=== PATIENT | female | born 1935 | race Hispanic/Latino ===

== ENCOUNTER 2018-04-01 15:46 | Inpatient (IN) | payer OTHER ==
[~2018-04-01] VITALS: Ht 152.4 cm; Wt 59.0 kg
[~2018-04-01 15:46] MED LIST: ASPIRIN81 M4 PO; BACTRIM DS TAB1 EACH PO; CEFUROXIME AXE500 MG PO; COREG 6.256.25 MG PO; DIOVAN 160 MG160 MG PO; JANUMET 50-5001 EACH PO; NORCO 5-325 TA1 EACH PO; PRAVASTATIN SOD40 M2 PO; TYLENOL WITH C1 EACH PO; VICODIN5-300 PO; ZOFRAN ODT4 M1 PO; ZOFRAN ODT4 M1 SL; ZOFRAN4 M1 PO
--- NOTE | 2018-04-01 15:59 | ED GENERAL ADULT ---
History of Present Illness General Chief Complaint: Nausea, Vomiting, Diarrhea Stated Complaint: BIBA NAUSEA Source: patient, family, old records Exam Limitations: no limitations Vital Signs & Intake/Output Vital Signs & Intake/Output Vital Signs Date Time Temp Pulse Resp B/P B/P Pulse O2 O2 Flow FiO2 Mean Ox Delivery Rate 04/02 0018 98.5 80 20 160/62 98 Room Air 04/01 2338 98.5 83 20 138/64 96 Room Air 04/01 2227 83 18 162/64 98 Room Air 04/01 2208 98.0 72 18 220/76 04/01 2136 72 18 220/76 96 Room Air 04/01 2005 93 18 192/86 97 Room Air 04/01 1925 98.0 74 18 202/68 04/01 1916 74 18 202/68 96 Room Air 04/01 1806 94 18 218/88 95 Room Air 04/01 1709 97 Room Air 04/01 1559 98.0 74 18 163/85 98 Room Air ED Intake and Output 04/02 0000 04/01 1200 Intake Total 1000 Output Total Balance 1000 Intake, IV 1000 Patient 130 lb Weight Weight Estimated Measurement Method Allergies Coded Allergies: No Known Allergies (03/07/16) Reconcile Medications Aspirin 81 MG CTB 1 TAB PO DAILY HEART (Reported) Carvedilol (Coreg) 6.25 MG TAB 1 TAB PO DAILY HTN (Reported) Cefuroxime Axetil (Cefuroxime) 500 MG TAB 1 TAB PO BID urine infection Hydrocodone/Acetaminophen ([place] 5-325 Tablet) 1 EACH TABLET 1 TAB PO Q6P PRN PAIN Metformin Hydrochloride/Zunilda (Janumet 500 MG-50 MG) 1 TAB TAB 1 TAB PO DAILY SUGAR (Reported) Ondansetron (Zofran Odt) 4 MG TAB.RAPDIS 1 TAB PO Q6 PRN NAUSEA Ondansetron (Zofran Odt) 4 MG TAB.RAPDIS 1 TAB SL TID PRN NAUSEA Pravastatin Sodium 40 MG TAB 1 TAB PO DAILY CHOL (Reported) Sulfamethoxazole/Trimethoprim (Bactrim Ds Tablet) 1 EACH TABLET 1 TAB PO BID UTI Tylenol With Codeine (Tylenol With Codeine #3 Tablet) 300 MG-30 MG TABLET 1 TAB PO Q8P PRN PAIN Valsartan (Diovan) 160 MG TAB 1 TAB PO DAILY HTN (Reported) Triage Nurses Notes Reviewed? yes HPI: This is an 83-year-old independent female with history of hypertension, hyperlipidemia, osu-[id number] diabetes, cholecystitis status post cholecystectomy presenting to the emergency department with abrupt onset nausea with epigastric discomfort associated with lightheadedness and feeling of malaise. She denies any chest pain or shortness of breath. She has no recent illness, injury, travel. No obvious sick contacts. Upon arrival to the emergency department she states that her symptoms are somewhat improved. She denies any ongoing abdominal discomfort. She does feel mildly nauseated. She denies any vertigo. She has a steady gait. (Fabrizio Tyler MD) Past History Travel History Traveled to [facility] past 21 day No Medical History Any Pertinent Medical History? 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 No (Fabrizio Tyler MD) Review of Systems Review of Systems Constitutional: Reports: malaise. Denies: chills, diaphoresis, fever, weakness. EENTM: Reports: no symptoms. Respiratory: Reports: no symptoms. Cardiovascular: Reports: no symptoms. GI: Reports: see HPI. Denies: vomiting. Musculoskeletal: Reports: no symptoms. Skin: Reports: no symptoms. Neurological/Psychological: Reports: see HPI. (Fabrizio Tyler MD) Physical Exam Physical Exam General Appearance: well developed/nourished, no apparent distress, awake, comfortable Comments: Well-appearing elderly female, no acute distress. HEENT exam within normal limits. Extraocular muscles intact, visual gomez normal, vision grossly intact , no vertical or horizontal nystagmus noted. Normal gait, negative Romberg. Normal sensation in all extremities. No gross motor deficits. Cranial nerves II through XII normal as tested. Cardio pulmonary exam significant for possible S3. Otherwise within normal limits. Abdomen benign, nondistended, nontender. No edema in bilateral lower extremities. Intact pulse movement sensation all extremities. Core Measures ACS in differential dx? Yes CVA/TIA Diagnosis: No Sepsis Present: No Sepsis Focused Exam Completed? No (Fabrizio Tyler MD) Progress Differential Diagnoses I considered the following diagnoses in my evaluation of the patient: Dehydration, pancreatitis, intra-abdominal infection, metabolic derangement, ACS (atypical),Occult infection/UTI/pneumonia, low suspicion for CVA given lack of focal neurologic deficit. Possibility of posterior circulation pathology is considered but seems low likelihood given lack of vertigo, ongoing dizziness, other suggestive physical exam or historical features. Doubt acute vascular pathology at this time. Plan of Care: Orders Procedure Date/time Status Heart Healthy Diet 04/02 B Active MRI-HEAD W/O LUCA 04/02 800 Active BASIC ELECTROLYTES PLUS BUN&CR 04/02 600 Active Weight 04/01 2334 Active Vital Signs 04/01 233 Active Teach/Educate 04/01 2334 Active Pain Treatment and Response 04/01 2334 Active Nutritional Intake, Monitor 04/01 2334 Active Isolation 04/01 2334 Active Intake & Output 04/01 233 Active Patient Care Conference 04/01 233 Active Activity/Ambulation 04/01 2334 Active Patient Data 04/01 215 Active Pathway - chart 04/01 2108 Active House Staff 04/01 2108 Active Patient Data 04/01 2108 Active Code Status 04/01 2108 Active Admit to inpatient 04/01 205 Active Vital Signs 04/01 205 Active Code Status 04/01 205 Complete CULTURE,URINE 04/01 1821 Active Intake & Output 04/01 1703 Active URINALYSIS 04/01 1634 Complete TROPONIN LEVEL 04/01 1634 Complete LIPASE 04/01 1634 Complete COMPREHENSIVE METABOLIC PANEL 04/01 1634 Complete CBC WITHOUT DIFFERENTIAL 04/01 1634 Complete EKG 04/01 1630 Active EKG 04/01 1555 Active PT Evaluate & Treat 04/01 UNK Active Lab Add-on Test 04/01 UNK Active VTE Mechanical Prophylaxis 04/01 UNK Active Telemetry/Genetic Scientist 04/01 UNK Active FingerStick- Glucose 04/01 UNK Active Current Medications Sig/Wander Start time Last Medication Dose Stop Time Status Admin Enoxaparin Sodium 40 MG DAILY 04/03 900 AC (Lovenox) Insulin Aspart 0 TIDAC 04/02 0800 AC 04/01 (NovoLOG) 2324 Acetaminophen 650 MG Q6P PRN 04/01 2115 AC (Tylenol) Laboratory Tests 04/01/18 1821: Urine Color ORANG H, Urine Clarity HAZY H, Urine pH 6.0, Ur Specific [place] 1.015, Urine Protein 100 H, Urine Ketones NEG, Urine Nitrite POS H, Urine Bilirubin NEG, Urine Urobilinogen 0.2, Ur Leukocyte Esterase SMALL H, Ur Microscopic SEDIMENT EXAMINED, Urine RBC >75 H, Urine WBC 15-25 H, Ur Epithelial Cells RARE, Urine Bacteria MANY H, Urine Hemoglobin LARGE H, Urine Glucose 250 H 04/01/18 1657: Anion Gap 7, Estimated GFR > 60, BUN/Creatinine Ratio 38.0 H, Glucose 276 H, Calcium 9.2, Total Bilirubin 0.3, AST 19, ALT 21, Alkaline Phosphatase 126, Troponin I < 0.01, Total Protein 7.1, Albumin 3.7, Globulin 3.4, Albumin/ Globulin Ratio 1.1, Lipase 74, CBC w Diff NO MAN DIFF REQ, RBC 4.16 L, MCV 86.3 , MCH 29.6, MCHC 34.3, RDW 12.6, MPV 11.1 H, Gran % 71.1, Lymphocytes % 21.3, Monocytes % 6.2, Eosinophils % 0.9, Basophils % 0.5, Absolute Granulocytes 5.2, Absolute Lymphocytes 1.6, Absolute Monocytes 0.5, Absolute Eosinophils 0.1, Absolute Basophils 0 Microbiology 04/01 1821 URINE ROUT: Urine Culture - RECD Plan for troponin 2, EKG, chest x-ray, CT head, abdominal CT, IV fluids, Zofran , reassessment. Diagnostics are significant for a apparent UTI. Case discussed with Dr. Dukes, he agrees with plan for inpatient admission given patient is manifesting systemic symptoms. Additionally, the patient has an equivocal CT read which shows a hyperdensity to the left darrius, most likely related to calcification. However given there is no prior for comparison, acute hemorrhage cannot be excluded. Patient will undergo repeat CT in 12 hours versus inpatient MRI. Dr. Dukes aware. Dr. Vallecillo of neurology is consulted and agrees with plan. Apart from requiring blood pressure control with labetalol, remains hematologically and neurologically stable in the emergency department. No leukocytosis noted on labs. Initial ED EKG: normal axis, normal intervals, lateral TWI; similar to prior but moderately worsened; stable on q30min repeat (Jayson RAI,Fabrizio) Departure Departure Time of Disposition: 2113 Disposition: STILL A PATIENT Condition: Stable Clinical Impression Primary Impression: UTI (urinary tract infection) Secondary Impressions: Epigastric abdominal pain, Lightheadedness, Nausea alone Referrals: Don Dukes MD (PCP/Family) Departure Forms: Customer Survey General Discharge Information Admission Note Spoke With: Don Dukes MD Documentation of Exam: Documentation of any treatments & extenuating circumstances including Concerns Regarding Discharge (functional status, medication knowledge or non-compliance, living conditions, etc.) that warrant an admission rather than observation: IV antibiotics, repeat head CT versus MRI, repeat labs, reassessment. (Fabrizio Tyler MD) PA/PRESS OPERATOR HEAVY DUTY Co-Sign Statement Statement: ED Attending supervision documentation- X I saw and evaluated the patient. I have also reviewed all the pertinent lab results and diagnostic results. I agree with the findings and the plan of care as documented in the PA's/PRESS OPERATOR HEAVY DUTY's documentation. [] I have reviewed the ED Record and agree with the PA's/PRESS OPERATOR HEAVY DUTY's documentation. [] Additions or exceptions (if any) to the PAs/PRESS OPERATOR HEAVY DUTY's note and plan are summarized below: [] (Trino RAI,Erik) Critical Care Note Critical Care Note Critical Care Time: non-applicable (Fabrizio Tyler MD)
[2018-04-01 17:14] LABS: ABSOLUTE BASOPHIL COUNT 0 /CUMM (0.0-0.2); ABSOLUTE EOSINOPHIL COUNT 0.1 /CUMM (0.0-0.7); ABSOLUTE GRANULOCYTE CT 5.2 /CUMM (1.4-6.5); ABSOLUTE LYMPH COUNT 1.6 /CUMM (1.2-3.4); ABSOLUTE MONOCYTE COUNT 0.5 /CUMM (0.10-0.60); BASOPHIL % 0.5 % (0.0-2.0); EOSINOPHIL % 0.9 % (0-5); GRANULOCYTE % 71.1 % (42.2-75.2); HEMATOCRIT 35.9 % (37-47); MEAN CORPUSCULAR HGB 29.6 PG (27.0-31.0); MEAN CORPUSCULAR HGB CONC 34.3 G/DL (33.0-37.0); MEAN CORPUSCULAR VOLUME 86.3 FL (81.0-99.0); MEAN PLATELET VOLUME 11.1 FL (7.4-10.4); PLATELET COUNT 236 /CUMM (130-400); RBC DISTRIBUTION WIDTH 12.6 % (11.5-14.5); RED BLOOD CELL CT 4.16 /CUMM (4.20-5.40); WHITE BLOOD CELL COUNT 7.4 /CUMM (4.8-10.8)
--- NOTE | 2018-04-01 17:48 | RADIOLOGY REPORT ---
EXAMINATION: XR CHEST CLINICAL INFORMATION: Lightheadedness. Concern for pneumonia. COMPARISON: 03/24/2011 TECHNIQUE: 2 views of the chest were obtained. FINDINGS: Lungs are symmetrically expanded. Linear opacities of minimal atelectasis and/or scarring in the left lung base. No pulmonary edema, consolidation or pleural effusion. Cardiac silhouette is normal in size. Mitral valve annulus is calcified. Atherosclerotic calcification of the aorta. The hilar contours are normal. Bones appear diffusely osteoporotic. No acute findings within the degenerated spine. IMPRESSION: No evidence of pneumonia.
--- NOTE | 2018-04-01 18:43 | CT SCAN REPORT ---
EXAMINATION: CT HEAD WITHOUT CONTRAST CLINICAL INFORMATION: Dizziness and vomiting. COMPARISON: None TECHNIQUE: Contiguous axial imaging was performed from the skull base to vertex without intravenous administration of contrast. DLP: 548 mGy-cm FINDINGS: Brain parenchyma: Mild patchy hypoattenuation within periventricular white matter, likely sequela of chronic small vessel ischemic change. Mild atrophy of cerebral hemispheres. Nickerson-white matter differentiation is well preserved. No evidence of an acute major vascular territory infarction, mass or midline shift. There is atherosclerotic calcification of vertebral and cavernous carotid arteries. Small, 0.3 cm hyperdense focus within the left darrius probably represents calcification rather than acute hemorrhage. No surrounding edema. Cerebrospinal fluid spaces: The mild atrophy of cerebral hemispheres is associated with commensurate prominence of ventricles and sulci. No hydrocephalus or extra-axial fluid collections. Cerebellum and brainstem: The 4th ventricle is midline in position. The cerebellopontine angles are normal. Again, there is a 0.3 cm focus of high attenuation left darrius that probably represents a focus of chronic calcification. However, follow-up may be needed (given absence of comparison exams, and depending on patient's clinical course). Calvarium and temporomandibular joints: Calvarium is intact. Mastoid air cells and middle ear cavities are well aerated. The TMJs are normal. Paranasal sinuses and orbits: There appears to be mucus within one of the left ethmoid air cells. Otherwise, paranasal sinuses are unremarkable. The visualized orbits are unremarkable. Other: No acute findings in the visualized extracranial soft tissues. IMPRESSION: - Chronic, mild small vessel ischemic changes of the supratentorial white matter. - Mild cerebral atrophy. - Small, 0.3 cm hyperdense focus in the left darrius probably represents an old calcification rather than acute hemorrhage. No surrounding edema or mass effect. If there are no contraindications, MR imaging would be recommended for further evaluation. Alternatively, a follow-up noncontrast head CT could be acquired in the next 12-24 hours, or sooner, depending upon the clinical course. Findings/recommendations discussed with Fabrizio Tyler of the Emergency Room at 6:35 PM on 04/01/2018.
--- NOTE | 2018-04-01 18:43 | CT SCAN REPORT ---
EXAMINATION: CT ABDOMEN AND PELVIS WITH CONTRAST CLINICAL INFORMATION: Abdominal pain, vomiting, lightheadedness. Presumptive diagnosis of intra-abdominal infection. COMPARISON: CT scan of the abdomen and pelvis dated 03/11/[address] scans dating back to 05/06/2012. TECHNIQUE: Multidetector CT volumetric acquisition of the abdomen and pelvis was performed after the administration of 95 mL of intravenous Optiray 320. The data set was reformatted in the sagittal and coronal planes and reviewed on an independent workstation. DLP: 342.95 mGy-cm. FINDINGS: LOWER CHEST: Patchy groundglass and reticular opacities is seen in the lung bases bilaterally, consistent with incomplete lung expansion and atelectatic changes. Trace pericardial effusion is seen. Cardiac silhouette is enlarged. Dense mitral annular calcifications is seen. LIVER, GALLBLADDER, BILIARY TREE: Liver normal size and diffusely lower in attenuation compared to the spleen, consistent with hepatic steatosis. No focal cystic or solid mass or intra-or extrahepatic ductal dilatation. Hepatic and portal veins patent. Gallbladder is surgically absent with richa seen in the gallbladder fossa. No focal collection seen in the gallbladder fossa. Common bile duct in the pancreatic head is 0.7 cm in maximal diameter. PANCREAS: The pancreas is diffusely atrophic. No ductal dilatation, mass, or surrounding stranding. SPLEEN: Normal size and appearance. Splenic vein patent. ADRENAL GLANDS AND KIDNEYS: Adrenal glands normal. Kidneys bilaterally symmetric in size and function. Prominent cortical lobulation is seen in both kidneys. There are small subcentimeter sized low-attenuation masses in the mid right kidney and upper pole of the left kidney, too small to further characterize and poorly assessed on prior noncontrast imaging, but most consistent with incidental small cysts. No suspicious focal mass, hydronephrosis, nephrolithiasis or perinephric stranding. Bilateral extrarenal pelvises are seen. URETERS AND BLADDER: Ureters decompressed and within normal limits. Bladder well distended and within normal limits. PELVIC ORGANS: The patient is status post hysterectomy and presumably oophorectomy. No suspicious adnexal mass. GASTROINTESTINAL TRACT: There is moderate descending and sigmoid colonic diverticulosis and mild transverse and ascending colonic diverticulosis with no evidence of acute diverticulitis. Small and large bowel loops decompressed. Appendix in right lower quadrant normal. ABDOMINAL WALL: Small fat-containing umbilical hernia is seen. LYMPHOVASCULAR STRUCTURES: Abdominal aorta normal in caliber. No periaortic collections. Dense atherosclerotic calcifications of the aorta and branch vessels, including both renal arteries and the origins of the celiac axis and SMA. No abdominal or pelvic adenopathy. There are richa seen along the right iliac vessels and in the omental region. BONES: Osteopenia with mild vertebral spondylosis in lower thoracic spine noted. Mild superior endplate depression is seen with prominent Schmorl's node at the L2 level, unchanged. Moderate degenerative disc disease is seen at the lumbosacral junction. Moderate facet arthropathy is seen in the mid and lower lumbar spine. IMPRESSION: 1. No acute intra-abdominal or pelvic findings. Specifically, no evidence of intra-abdominal collection/abscess. 2. Incidental findings of prominent colonic diverticulosis, extensive atherosclerotic vascular calcifications, bilateral probable renal cysts, hepatic steatosis and small fat-containing umbilical hernia noted.
--- NOTE | 2018-04-01 21:10 | History & Physical ---
Billy Steele 04/01/182108: General Information and HPI MD Statement: I have seen and personally examined KRISHNA SANTAMARIA and documented this H&P. The patient is a 83 year old F who presented with a patient stated chief complaint of [suddenly feeling unwell with pain in head and abdominal discomfort ]. Source of Information: patient, family Exam Limitations: language barrier (STALIN used) History of Present Illness: 83 year old female with history of HTN, HLD, NIDDM presented to the ED after suddenly feeling unwell, with headache, light-headedness, dizziness, weakness, nausea and abdominal discomfort while playing bingo at the [employer] earlier today. She denied visual or hearing changes, did not have any fall associated with this episode, denied sick contacts or sore throat/cough, denied dyspnea or chest pain. She took all of her home medications today, and her symptoms improved after being seen in the ED, where she was noted to be severely hypertensive. Allergies/Medications Allergies: Coded Allergies: No Known Allergies (03/07/16) Home Med list Aspirin 81 MG CTB 1 TAB PO DAILY HEART (Reported) Carvedilol (Coreg) 6.25 MG TAB 1 TAB PO DAILY HTN (Reported) Cefuroxime Axetil (Cefuroxime) 500 MG TAB 1 TAB PO BID urine infection Hydrocodone/Acetaminophen ([place] 5-325 Tablet) 1 EACH TABLET 1 TAB PO Q6P PRN PAIN Metformin Hydrochloride/Zunilda (Janumet 500 MG-50 MG) 1 TAB TAB 1 TAB PO DAILY SUGAR (Reported) Ondansetron (Zofran Odt) 4 MG TAB.RAPDIS 1 TAB PO Q6 PRN NAUSEA Ondansetron (Zofran Odt) 4 MG TAB.RAPDIS 1 TAB SL TID PRN NAUSEA Pravastatin Sodium 40 MG TAB 1 TAB PO DAILY CHOL (Reported) Sulfamethoxazole/Trimethoprim (Bactrim Ds Tablet) 1 EACH TABLET 1 TAB PO BID UTI Tylenol With Codeine (Tylenol With Codeine #3 Tablet) 300 MG-30 MG TABLET 1 TAB PO Q8P PRN PAIN Valsartan (Diovan) 160 MG TAB 1 TAB PO DAILY HTN (Reported) Past History Travel History Traveled to [place] past 21 day No Medical History Neurological: NONE EENT: NONE Cardiovascular: hypertension, hyperlipidemia, 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 Denies: chills, diaphoresis, fever. Cardiovascular: Denies: chest pain, edema, orthopena, palpitations, syncope. Respiratory: Denies: cough, orthopnea, short of breath. GI: Reports: abdominal pain, nausea. Denies: constipation, diarrhea, vomiting. Neurological/Psychological: Reports: headache. Post Menopausal: Yes Exam & Diagnostic Data Last 24 Hrs of Vital Signs/I&O Vital Signs Date Time Temp Pulse Resp B/P B/P Pulse O2 O2 Flow FiO2 Mean Ox Delivery Rate 04/01 2227 83 18 162/64 98 Room Air 04/01 2208 98.0 72 18 220/76 04/01 2136 72 18 220/76 96 Room Air 04/01 2005 93 18 192/86 97 Room Air 04/01 1925 98.0 74 18 202/68 04/01 1916 74 18 202/68 96 Room Air 04/01 1806 94 18 218/88 95 Room Air 04/01 1709 97 Room Air 04/01 1559 98.0 74 18 163/85 98 Room Air Intake & Output 04/01 1600 04/01 0800 04/01 0000 Intake Total Output Total Balance Patient 58.967 kg Weight Weight Estimated Measurement Method Physical Exam General Appearance Alert, Oriented X3, Cooperative, No Acute Distress HEENT Atraumatic, PERRLA, EOMI, Mucous Membr. moist/pink Neck Supple, No JVD Cardiovascular Regular Rate, Normal S1, Normal S2 Lungs Clear to Auscultation, Normal Air Movement Abdomen Normal Bowel Sounds, Soft, No Tenderness Neurological Normal Speech, Strength at 5/5 X4 Ext, Normal Tone, Sensation Intact Extremities No Clubbing, No Cyanosis, No Edema Last 24 Hrs of Labs/Yong: Laboratory Tests 04/01/18 1821: Urine Color ORANG H, Urine Clarity HAZY H, Urine pH 6.0, Ur Specific [place] 1.015, Urine Protein 100 H, Urine Ketones NEG, Urine Nitrite POS H, Urine Bilirubin NEG, Urine Urobilinogen 0.2, Ur Leukocyte Esterase SMALL H, Ur Microscopic SEDIMENT EXAMINED, Urine RBC >75 H, Urine WBC 15-25 H, Ur Epithelial Cells RARE, Urine Bacteria MANY H, Urine Hemoglobin LARGE H, Urine Glucose 250 H 04/01/18 1657: Anion Gap 7, Estimated GFR > 60, BUN/Creatinine Ratio 38.0 H, Glucose 276 H, Calcium 9.2, Total Bilirubin 0.3, AST 19, ALT 21, Alkaline Phosphatase 126, Troponin I < 0.01, Total Protein 7.1, Albumin 3.7, Globulin 3.4, Albumin/ Globulin Ratio 1.1, Lipase 74, CBC w Diff NO MAN DIFF REQ, RBC 4.16 L, MCV 86.3 , MCH 29.6, MCHC 34.3, RDW 12.6, MPV 11.1 H, Gran % 71.1, Lymphocytes % 21.3, Monocytes % 6.2, Eosinophils % 0.9, Basophils % 0.5, Absolute Granulocytes 5.2, Absolute Lymphocytes 1.6, Absolute Monocytes 0.5, Absolute Eosinophils 0.1, Absolute Basophils 0 Microbiology 04/01 1821 URINE ROUT: Urine Culture - RECD Assessment/Plan Assessment: 83 year old female with history of HTN, HLD, NIDDM presenting to the ED with hypertensive urgency and urinary tract infection. Problems: 1. Hypertensive urgency 2. Urinary tract infection 3. NIDDM Plan: -Admit to telemetry -Hydralazine 10mg IV PRN for BP control, reassess regularly -Ceftriaxone 1g IV daily -F/u urine cultures -Insulin sliding scale coverage -Lovenox DVT prophylaxis -Heart healthy diet -Full code As Ranked By This Provider Problem List: 1. Headache 2. UTI (urinary tract infection) 3. Lightheadedness 4. Nausea alone 5. Epigastric abdominal pain Core Measures/Misc (04/07) Acute Coronary Syndrome ACS Diagnosis: No Congestive Heart Failure Congestive Heart Failure Diagnosis No Cerebrovascular Accident CVA/TIA Diagnosis: No VTE (View Protocol) VTE Risk Factors Age>40 No Mechanical VTE Prophylaxis d/t N/A MechProphylax Ordered No VTE Pharm Prophylaxis d/t NA PharmProphylax ordered (Lovenox) Sepsis (View protocol) Sepsis Present: No If YES complete Sepsis Event Note If YES complete Sepsis Event Note Wes RAI,Rani 04/01/18 9106: Exam & Diagnostic Data Last 24 Hrs of Vital Signs/I&O Vital Signs Date Time Temp Pulse Resp B/P B/P Pulse O2 O2 Flow FiO2 Mean Ox Delivery Rate 04/02 0018 98.5 80 20 160/62 98 Room Air 04/01 2338 98.5 83 20 138/64 96 Room Air 04/01 2227 83 18 162/64 98 Room Air 04/01 2208 98.0 72 18 220/76 04/01 2136 72 18 220/76 96 Room Air 04/01 2005 93 18 192/86 97 Room Air 04/01 1925 98.0 74 18 202/68 04/01 1916 74 18 202/68 96 Room Air 04/01 1806 94 18 218/88 95 Room Air 04/01 1709 97 Room Air 04/01 1559 98.0 74 18 163/85 98 Room Air Intake & Output 04/02 0800 04/02 0000 04/01 1600 Intake Total 1000 Output Total Balance 1000 Intake, IV 1000 Patient 130 lb 130 lb 130 lb Weight Weight Estimated Estimated Measurement Method Core Measures/Misc (04/07) Sepsis (View protocol) If YES complete Sepsis Event Note If YES complete Sepsis Event Note Resident Review Statement Resident Statement: examined this patient, discussed with administration intern, reviewed EMR data (avail) Other Findings: 83 yo F with PMH of hypertension, hyperlipidemia, diabetes presented to the ED for evaluation of sudden onset lightheadedness, headache and nausea. The patient states that earlier this morning she was playing bingo when she suddenly felt weak, nauseaous and lightheaded. She did not vomit. Denies any similar prior episodes. By the time she came to the ER her symptoms had improved though she did mention a mild headache. She denies any fevers, chills, sore throat, chest pain, SOB or any sick contacts. She does endorses mild abdominal pain and discomfort with urination. ROS: as per HPI Physical Exam: General Appearance: well developed/nourished, no acute distress distress Head: atraumatic, normal appearance Eyes: bilateral: normal appearance, PERRLA, Ears, Nose, Throat: normal hearing and speech. Respiratory: CTA with bibasilar crackles Cardiovascular: regular rate/rhythm, normal S1 and S2, no M/R/G Gastrointestinal: soft, non-distended, no tenderness, +ve BS Extremities: no edema Skin: intact, normal color, warm/dry CT Head: Small, 0.3 cm hyperdense focus in the left darrius probably represents an old calcification rather than acute hemorrhage. No surrounding edema or mass effect. In the ED the patient was give one dose of IV Ceftriaxone 1g and IV Labetolol 10mg push for high blood pressure. Assessment: 1. Hypertensive Urgency 2. UTI 3. Old calcification in left darrius 4. History of Hypertension and hyperlipidemia 5. History of diabetes Plan: * Admit patient to telemetry floor. * Give IV hydralazine 10mg prn to control blood pressure. Goal is to decrease blood pressure by 25% in 24 hours. * Continue IV Ceftriaxone 1g daily for 3 days. * Follow up urine cultures. * Obtain MRI in am to assess for any IC bleed and to visualize the area of calcification in darrius. * Hold oral hypoglycemics * Insulin SS and Accucheks * Please obtain the medication list in am. The patient's daughter has been asked to bring in the list. Pharmacy is [facility] in [place]. * Diet: Heart Healthy * DVT Prophylaxis: SC Lovenox * Code: Full Code
--- NOTE | 2018-04-01 21:17 | Admission Certification ---
Admission Certification Certification Statement - As attending physician, I certify that at the time of - admission, based on clinical presentation, severity of - symptoms, need for further diagnostic testing and - therapeutic interventions, and risk of adverse outcomes - without in-hospital treatment, in my clinical assessment, - this patient requires an acute hospital stay for a minimum - of two nights or longer. I have also considered psychsocial - factors such as support system, advanced age, financial - issues, cognitive issues, and failed out-patient treatments, - past re-admission history, safety of patient, and lack of - compliance as applicable. Specific rationale supporting this admission is: Weakness durty urine, urinary tract infection
--- NOTE | 2018-04-01 21:23 | PN- Att Addend ---
Attending Addendum Attending Brief Note 83-year-old female who was at [facility] with her sister today when suddenly she started feeling ill feeling weak feeling lightheaded some nausea and some lower abdominal discomfort. Comes to the ER she states in the emergency room she was a little improved. Her vital signs showed a little elevated blood pressure upon workup was noticed that she had a dirty urine, but her white count is normal. She also had a CAT scan of the head which showed some subtle abnormalities which might be a calcification and less likely a bleed was recommended to be followed by an MRI later on by another CAT scan the patient after getting all the cultures was given a dose of IV antibiotics. Patient will be admitted will follow her cultures and adjust antibiotics. Follow-up MRI of the head tomorrow and get a PT evaluation. Current Medications Sig/Wander Start time Last Medication Dose Route Stop Time Status Admin Acetaminophen 650 MG Q6P PRN 04/01 2115 UNVr PO Ceftriaxone Sodium 0 .STK-MED ONE 04/01 2049 DC .ROUTE Ceftriaxone Sodium 1,000 MG ONCE ONE 04/01 2000 DC 04/01 IV 04/01 Enoxaparin Sodium 40 MG DAILY 04/03 900 UNVr SC Labetalol HCl 0 .STK-MED ONE 04/01 1922 DC IV Labetalol HCl 10 MG ONCE ONE 04/01 1915 DC 04/01 IV 04/01 Ondansetron HCl 0 .STK-MED ONE 04/01 171 DC .ROUTE Ondansetron HCl 4 MG ONCE ONE 04/01 1645 DC 04/01 IV 04/01 1646 1712 Sodium Chloride 1,000 ML BOLUS ONE 04/01 164 DC 04/01 IV 04/01 1744 1712 Laboratory Tests 04/01/18 1821: Urine Color ORANG H, Urine Clarity HAZY H, Urine pH 6.0, Ur Specific [place] 1.015, Urine Protein 100 H, Urine Ketones NEG, Urine Nitrite POS H, Urine Bilirubin NEG, Urine Urobilinogen 0.2, Ur Leukocyte Esterase SMALL H, Ur Microscopic SEDIMENT EXAMINED, Urine RBC >75 H, Urine WBC 15-25 H, Ur Epithelial Cells RARE, Urine Bacteria MANY H, Urine Hemoglobin LARGE H, Urine Glucose 250 H 04/01/18 1657: Anion Gap 7, Estimated GFR > 60, BUN/Creatinine Ratio 38.0 H, Glucose 276 H, Calcium 9.2, Total Bilirubin 0.3, AST 19, ALT 21, Alkaline Phosphatase 126, Troponin I < 0.01, Total Protein 7.1, Albumin 3.7, Globulin 3.4, Albumin/ Globulin Ratio 1.1, Lipase 74, CBC w Diff NO MAN DIFF REQ, RBC 4.16 L, MCV 86.3 , MCH 29.6, MCHC 34.3, RDW 12.6, MPV 11.1 H, Gran % 71.1, Lymphocytes % 21.3, Monocytes % 6.2, Eosinophils % 0.9, Basophils % 0.5, Absolute Granulocytes 5.2, Absolute Lymphocytes 1.6, Absolute Monocytes 0.5, Absolute Eosinophils 0.1, Absolute Basophils 0 Vital Signs Date Time Temp Pulse Resp B/P B/P Pulse O2 O2 Flow FiO2 Mean Ox Delivery Rate 04/01 2005 93 18 192/86 97 Room Air 04/01 1925 98.0 74 18 202/68 04/01 1916 74 18 202/68 96 Room Air 04/01 1806 94 18 218/88 95 Room Air 04/01 1709 97 Room Air 04/01 1559 98.0 74 18 163/85 98 Room Air Intake & Output 04/01 1600 Intake Total Output Total Balance Patient 130 lb Weight Weight Estimated Measurement Method Patient also had a CAT scan of the abdomen which showed no acute abnormalities
[2018-04-02] VITALS (7 sets, daily range): BP systolic 138–176; BP diastolic 60–70
--- NOTE | 2018-04-02 09:30 | PN- Housestaff ---
Subjective Follow-up For: UTI Tele-Events Since Last Visit: NSR 71-81 Subjective: Saw pt at bedside this AM. No acute overnight events or complaints. Has no more episodes of dizziness, ojeda or nausea. She is eating and drinking well. Her BP was 160/62 she is on antihypertensives this AM but does not know the name of hte medication. Will have to obtain medlist from pharmacy. Review of Systems Constitutional: Reports: no symptoms. Cardiovascular: Denies: chest pain, peripheral edema. Respiratory: Denies: cough. Gastrointestinal: Denies: abdominal pain, nausea. Genitourinary: Denies: dysuria, hesitation, pain. Musculoskeletal: Reports: no symptoms. Objective Last 24 Hrs of Vital Signs/I&O Vital Signs Date Time Temp Pulse Resp B/P B/P Pulse O2 O2 Flow FiO2 Mean Ox Delivery Rate 04/02 0649 97.8 80 20 160/62 96 04/02 0018 98.5 80 20 160/62 98 Room Air 04/01 2338 98.5 83 20 138/64 96 Room Air 04/01 2227 83 18 162/64 98 Room Air 04/01 2208 98.0 72 18 220/76 04/01 2136 72 18 220/76 96 Room Air 04/01 2005 93 18 192/86 97 Room Air 04/01 1925 98.0 74 18 202/68 04/01 1916 74 18 202/68 96 Room Air 04/01 1806 94 18 218/88 95 Room Air 04/01 1709 97 Room Air 04/01 1559 98.0 74 18 163/85 98 Room Air Intake & Output 04/02 1600 04/02 0800 04/02 0000 Intake Total 1000 Output Total 450 Balance -450 1000 Intake, IV 1000 Output, Urine 450 Patient 58.967 kg 58.967 kg Weight Weight Estimated Measurement Method Physical Exam General Appearance: Alert, Oriented X3, Cooperative, No Acute Distress Skin: No Significant Lesion HEENT: Atraumatic, PERRLA, EOMI Neck: Supple Cardiovascular: Regular Rate, Normal S1, Normal S2, No Murmurs Lungs: Normal Air Movement Abdomen: Soft Neurological: Normal Speech Extremities: No Edema Assessment/Plan Assessment: This is an 83 year old female with PMH of HTN, HLD, NIDDM presenting to the ED with CC of OJEDA, nausea, dizziness, which subsequently self-resovled. While in ED her BP was up to 220/90s and she was found to have UA + for nitrite, LE, arvin, 15 -25 WBC and some dysuria. As such admitted to to tele for hypertensive urgency and likely UTI. PLAN: 1. HTN urgency: She got labetalol and IV hydralazine in ED. She is on BP meds at home but is unsure of dose and med name. Will call pharmacy and reinstitute her home regimen. BP this am 160/62. * Hold off on IV antihypertensives at the time * Resume oral antihpertensives 2. Uncomplicated UTI: * Ceftriaxone 1g IV daily--DAY2 * F/u urine cultures * Insulin sliding scale coverage 3. DM * Hold oral hypoglycemics * FS * RISS 4. Calcified foci on CT: She had a head CT in ED yesterday given her OJEDA/ dizziness. It showed:"Chronic, mild small vessel ischemic changes of the supratentorial white matter. Mild cerebral atrophy. Small, 0.3 cm hyperdense focus in the left darrius probably represents an old calcification rather than acute hemorrhage. No surrounding edema or mass effect. If there are no contraindications, MR imaging would be recommended for further evaluation. Alternatively, a follow-up noncontrast head CT could be acquired in the next 12-24 hours, or sooner, depending upon the clinical course." * Repeat MRI this AM -Lovenox DVT prophylaxis -Heart healthy diet -Full code Problem List: 1. UTI (urinary tract infection) Pain Ratin Pain Location: none Pain Plan: current Tomorrow's Labs & Rationales: cbc
--- NOTE | 2018-04-02 10:04 | PN- Att Addend ---
Attending Addendum Attending Brief Note Patient sitting in the chair still feels a little dizzy physical therapist with checking her for vestibular abnormalities. Blood pressure little bit on the high side but not as high as last evening and medications were adjusted. Patient has no fever. No new changes on physical examination. Intake & Output 04/02 1600 04/02 0800 04/02 0000 04/01 1600 04/01 0800 04/01 0000 Intake Total 1000 Output Total 450 Balance -450 1000 Intake, IV 1000 Output, Urine 450 Patient 130 lb 130 lb 130 lb Weight Weight Estimated Estimated Measurement Method Current Medications Sig/Wander Start time Last Medication Dose Route Stop Time Status Admin Acetaminophen 650 MG Q6P PRN 04/01 2115 AC PO Amlodipine Besylate 5 MG DAILY 04/02 935 AC PO Ceftriaxone Sodium 1,000 MG DAILY 04/02 09 AC 04/02 IV 04/03 1200 0943 Ceftriaxone Sodium 0 .STK-MED ONE 04/01 2049 DC .ROUTE Ceftriaxone Sodium 1,000 MG ONCE ONE 04/01 2000 DC 04/01 IV 04/01 Enoxaparin Sodium 40 MG DAILY 04/03 900 SC Hydralazine HCl 0 .STK-MED ONE 04/01 2206 DC .ROUTE Hydralazine HCl 10 MG ONCE ONE 04/01 2200 DC 04/01 IV 04/01 Insulin Aspart 0 TIDAC 04/02 0800 AC 04/02 SC 0759 Labetalol HCl 0 .STK-MED ONE 04/01 1922 DC IV Labetalol HCl 10 MG ONCE ONE 04/01 1915 DC 04/01 IV 04/01 1916 192 Ondansetron HCl 0 .STK-MED ONE 04/01 171 DC .ROUTE Ondansetron HCl 4 MG ONCE ONE 04/01 1645 DC 04/01 IV 04/01 1646 1712 Pravastatin Sodium 10 MG DAILY 04/02 0935 AC PO Sodium Chloride 1,000 ML BOLUS ONE 04/01 164 DC 04/01 IV 04/01 1744 1712 Laboratory Tests 04/02/18 0644: Anion Gap 7, Estimated GFR > 60, BUN/Creatinine Ratio 26.7 H 04/01/18 1821: Urine Color ORANG H, Urine Clarity HAZY H, Urine pH 6.0, Ur Specific [place] 1.015, Urine Protein 100 H, Urine Ketones NEG, Urine Nitrite POS H, Urine Bilirubin NEG, Urine Urobilinogen 0.2, Ur Leukocyte Esterase SMALL H, Ur Microscopic SEDIMENT EXAMINED, Urine RBC >75 H, Urine WBC 15-25 H, Ur Epithelial Cells RARE, Urine Bacteria MANY H, Urine Hemoglobin LARGE H, Urine Glucose 250 H 04/01/18 1657: Anion Gap 7, Estimated GFR > 60, BUN/Creatinine Ratio 38.0 H, Glucose 276 H, Calcium 9.2, Total Bilirubin 0.3, AST 19, ALT 21, Alkaline Phosphatase 126, Troponin I < 0.01, Total Protein 7.1, Albumin 3.7, Globulin 3.4, Albumin/ Globulin Ratio 1.1, Lipase 74, CBC w Diff NO MAN DIFF REQ, RBC 4.16 L, MCV 86.3 , MCH 29.6, MCHC 34.3, RDW 12.6, MPV 11.1 H, Gran % 71.1, Lymphocytes % 21.3, Monocytes % 6.2, Eosinophils % 0.9, Basophils % 0.5, Absolute Granulocytes 5.2, Absolute Lymphocytes 1.6, Absolute Monocytes 0.5, Absolute Eosinophils 0.1, Absolute Basophils 0 Vital Signs Date Time Temp Pulse Resp B/P B/P Pulse O2 O2 Flow FiO2 Mean Ox Delivery Rate 04/02 0649 97.8 80 20 160/62 96 04/02 0018 98.5 80 20 160/62 98 Room Air 04/01 2338 98.5 83 20 138/64 96 Room Air 04/01 2227 83 18 162/64 98 Room Air 04/01 2208 98.0 72 18 220/76 04/01 2136 72 18 220/76 96 Room Air 04/01 2005 93 18 192/86 97 Room Air 04/01 1925 98.0 74 18 202/68 04/01 1916 74 18 202/68 96 Room Air 04/01 1806 94 18 218/88 95 Room Air 04/01 1709 97 Room Air 04/01 1559 98.0 74 18 163/85 98 Room Air Urine culture pending. For now continue present treatment
--- NOTE | 2018-04-02 11:26 | MRI REPORT ---
EXAMINATION: MR BRAIN WITHOUT CONTRAST CLINICAL INFORMATION: Rule out intracranial hemorrhage. Headaches and hypertensive urgency. COMPARISON: Head CT from 04/01/2018. TECHNIQUE: Multiplanar, multisequence imaging of the brain was performed without contrast. Limited study with motion artifacts. FINDINGS: No susceptibility artifact or edema is seen within the brainstem at the site of the small focus of high attenuation on the head CT, presenting chronic mineralization. No diffusion abnormalities are identified to suggest an acute or subacute infarct. The ventricles are normal in size. No mass effect or midline shift is seen. Mild chronic white matter microangiopathic changes are noted. No extra-axial fluid collections are seen. The cerebellum is normal. The gradient refocused acquisition demonstrates no pathologic magnetic susceptibility artifact to indicate underlying acute or chronic blood products. There is generalized parenchymal volume loss. The craniovertebral junction, marrow signal, and midline structures are normal. The major intracranial flow voids at the level of the [place] are preserved. The dural venous sinus flow voids are maintained. The mastoid air cells are well aerated. There is a 3.5 cm retention cyst in the right maxillary sinus. IMPRESSION: No acute intracranial process. Mild chronic white matter microangiopathy and generalized parenchymal volume loss.
[2018-04-03 06:44] VITALS: BP 170/60
[2018-04-03 07:56] LABS: ABSOLUTE BASOPHIL COUNT 0 /CUMM (0.0-0.2); ABSOLUTE EOSINOPHIL COUNT 0.1 /CUMM (0.0-0.7); ABSOLUTE LYMPH COUNT 2.5 /CUMM (1.2-3.4); ABSOLUTE MONOCYTE COUNT 0.5 /CUMM (0.10-0.60); BASOPHIL % 0.5 % (0.0-2.0); EOSINOPHIL % 2.4 % (0-5); GRANULOCYTE % 49.1 % (42.2-75.2); HEMATOCRIT 34.9 % (37-47); MEAN CORPUSCULAR HGB CONC 33.5 G/DL (33.0-37.0); MEAN CORPUSCULAR VOLUME 86.6 FL (81.0-99.0); MEAN PLATELET VOLUME 11.3 FL (7.4-10.4); PLATELET COUNT 223 /CUMM (130-400); RBC DISTRIBUTION WIDTH 13.4 % (11.5-14.5); RED BLOOD CELL CT 4.03 /CUMM (4.20-5.40); WHITE BLOOD CELL COUNT 6.2 /CUMM (4.8-10.8)
--- NOTE | 2018-04-03 07:58 | PN- Housestaff ---
Assessment/Plan Assessment: This is an 83 year old female with PMH of HTN, HLD, NIDDM presenting to the ED with CC of OJEDA, nausea, dizziness, which subsequently self-resovled. While in ED her BP was up to 220/90s and she was found to have UA + for nitrite, LE, arvin, 15 -25 WBC and some dysuria. As such admitted to to tele for hypertensive urgency and likely UTI. She has had two doses of ceftriaxone and today will be her third which will complete her three dose requirement. Likely d/c today. PLAN: 1. HTN urgency: She got labetalol and IV hydralazine in ED. She is on BP meds at home but is unsure of dose and med name. Will call pharmacy and reinstitute her home regimen. BP this am 160/62. * Hold off on IV antihypertensives at the time * Resume oral antihpertensives-Started her back on amlodipine 10mg daily * Added low dose ACEi (2.5mg) given the overt proteinuria in her UA and her diabetes. 2. Uncomplicated UTI: * Ceftriaxone 1g IV daily--DAY3 * F/u urine cultures * Insulin sliding scale coverage 3. DM * Hold oral hypoglycemics * FS * RISS 4. Calcified foci on CT: She had a head CT in ED yesterday given her OJEDA/ dizziness. It showed:"Chronic, mild small vessel ischemic changes of the supratentorial white matter. Mild cerebral atrophy. Small, 0.3 cm hyperdense focus in the left darrius probably represents an old calcification rather than acute hemorrhage. No surrounding edema or mass effect. If there are no contraindications, MR imaging would be recommended for further evaluation. Alternatively, a follow-up noncontrast head CT could be acquired in the next 12-24 hours, or sooner, depending upon the clinical course." * Repeat MRI showed no intracranial abnormalities. -Lovenox DVT prophylaxis -Heart healthy diet -Full code Problem List: 1. Abdominal pain 2. UTI (urinary tract infection) Pain Ratin Pain Location: none Pain Goal: Remain pain free Pain Plan: none Tomorrow's Labs & Rationales: none
[2018-04-03] MEDS ORDERED: NORVASC5 M1 PO (08:02)
[2018-04-03] MEDS ORDERED: LISINOPRIL2.5 M1 PO (08:04)
[2018-04-03] MEDS ORDERED: NORVASC10 M1 PO (08:04)
--- NOTE | 2018-04-03 08:06 | Patient Discharge Instructions ---
Discharge Instructions General Discharge Information You were seen/treated for: UTI You had these procedures: Antibiotics Watch for these problems: Iching, burning on urination. Special Instructions: 1. Please see your PCP in one week 2. Please have your renal function checked in one week by your PCP Diet Continue normal diet: Yes Activity Activity Self Limited: Yes Acute Coronary Syndrome Inclusion Criteria At DC or during hospital stay patient has or had the following: ACS DIAGNOSIS No Discharge Core Measures Meds if any: Prescribed or Continued at Discharge Meds if any: NOT Prescribed or Continued at Discharge Congestive Heart Failure Inclusion Criteria At DC or during hospital stay patient has or had the following: CHF DIAGNOSIS No Discharge Core Measures Meds if any: Prescribed or Continued at Discharge Meds if any: NOT Prescribed or Continued at Discharge Cerebrovascular accident Inclusion Criteria At DC or during hospital stay patient has or had the following: CVA/TIA Diagnosis No Discharge Core Measures Meds if any: Prescribed or Continued at Discharge Meds if any: NOT Prescribed or Continued at Discharge Venous thromboembolism Inclusion Criteria VTE Diagnosis No VTE Type NONE VTE Confirmed by (Test) NONE Discharge Core Measures - Per Current guidelines, there needs to be overlap - treatment for the first 5 days of Warfarin therapy. - If discharged on Warfarin prior to 5 days of - overlap therapy, the patient will need to be - assessed for post discharge needs including - *Post discharge parental anticoagulation - *Warfarin and/or parental anticoagulation education - *Follow up date to check INR post discharge At least 5 days overlap therapy as Inpatient No Meds if any: Prescribed or Continued at Discharge Note: Overlap Therapy is Warfarin and Anticoagulant Meds if any: NOT Prescribed or Continued at Discharge
[2018-04-03 10:19] VITALS: BP 166/60
[2018-04-03] MEDS ORDERED: KEFLEX250 M1 PO (11:48)
--- NOTE | 2018-04-03 12:20 | PN- Att Addend ---
Attending Addendum Attending Brief Note Patient better, she is afebrile, she seems stronger, blood pressure medications adjusted. Day 3 on IV antibiotics. White count 6.2. Urine more than 100,000 colonies of E. coli sensitive to the antibiotic used. Will switch to p.o. antibiotics will start disposition plans for the patient to go home to have the visiting nurse monitor her blood pressure PT to check the patient to maybe need some home PT. See the CMR.. Intake & Output 04/03 1600 04/03 0400 04/02 1600 04/02 0400 04/01 1600 04/01 0400 Intake Total [phone] [id number] Output Total 550 Balance 120 120 -130 1000 Intake, IV 20 1000 Intake, Oral 120 120 400 Output, Urine 550 Patient 130 lb 130 lb Weight Weight Estimated Estimated Measurement Method Current Medications Sig/Wander Start time Last Medication Dose Route Stop Time Status Admin Acetaminophen 650 MG Q6P PRN 04/01 211 AC PO Amlodipine Besylate 10 MG DAILY 04/03 0900 AC 04/03 PO 1024 Amlodipine Besylate 5 MG ONCE ONE 04/02 1430 DC 04/02 PO 04/02 1431 1645 Amlodipine Besylate 5 MG DAILY 04/02 0935 DC 04/03 PO 0632 Ceftriaxone Sodium 1,000 MG DAILY 04/02 09 DC 04/03 IV 04/03 1200 0808 Enoxaparin Sodium 40 MG DAILY 04/03 0900 04/03 SC 0808 Insulin Aspart 0 TIDAC 04/02 0800 04/03 SC 0757 Lisinopril 2.5 MG DAILY 04/03 0900 AC 04/03 PO 1019 Meclizine HCl 12.5 MG ONCE ONE 04/02 1715 DC 04/02 PO 04/02 1716 1712 Pravastatin Sodium 10 MG DAILY 04/02 0935 04/03 PO 0809 Laboratory Tests 04/03/18 0615: Anion Gap 10, Estimated GFR > 60, BUN/Creatinine Ratio 24.3, CBC w Diff NO MAN DIFF REQ, RBC 4.03 L, MCV 86.6, MCH 29.0, MCHC 33.5, RDW 13.4, MPV 11.3 H, Gran % 49.1, Lymphocytes % 39.7, Monocytes % 8.3, Eosinophils % 2.4, Basophils % 0.5, Absolute Granulocytes 3.0, Absolute Lymphocytes 2.5, Absolute Monocytes 0.5 , Absolute Eosinophils 0.1, Absolute Basophils 0 04/02/18 0644: Anion Gap 7, Estimated GFR > 60, BUN/Creatinine Ratio 26.7 H 04/01/181820: Urine Color ORANG H, Urine Clarity HAZY H, Urine pH 6.0, Ur Specific [place] 1.015, Urine Protein 100 H, Urine Ketones NEG, Urine Nitrite POS H, Urine Bilirubin NEG, Urine Urobilinogen 0.2, Ur Leukocyte Esterase SMALL H, Ur Microscopic SEDIMENT EXAMINED, Urine RBC >75 H, Urine WBC 15-25 H, Ur Epithelial Cells RARE, Urine Bacteria MANY H, Urine Hemoglobin LARGE H, Urine Glucose 250 H 04/01/18 1657: Anion Gap 7, Estimated GFR > 60, BUN/Creatinine Ratio 38.0 H, Glucose 276 H, Calcium 9.2, Total Bilirubin 0.3, AST 19, ALT 21, Alkaline Phosphatase 126, Troponin I < 0.01, Total Protein 7.1, Albumin 3.7, Globulin 3.4, Albumin/ Globulin Ratio 1.1, Lipase 74, CBC w Diff NO MAN DIFF REQ, RBC 4.16 L, MCV 86.3 , MCH 29.6, MCHC 34.3, RDW 12.6, MPV 11.1 H, Gran % 71.1, Lymphocytes % 21.3, Monocytes % 6.2, Eosinophils % 0.9, Basophils % 0.5, Absolute Granulocytes 5.2, Absolute Lymphocytes 1.6, Absolute Monocytes 0.5, Absolute Eosinophils 0.1, Absolute Basophils 0 Microbiology 04/01 1821 URINE ROUT: Urine Culture - COMP ESCHERICHIA COLI Microbiology 04/01 1821 URINE ROUT: Urine Culture - COMP ESCHERICHIA COLI Vital Signs Date Time Temp Pulse Resp B/P B/P Pulse O2 O2 Flow FiO2 Mean Ox Delivery Rate 04/03 1019 78 166/60 04/03 0644 98.1 68 20 170/60 94 Room Air 04/03 0632 66 170/70 04/02 2150 98.0 70 16 156/60 94 Room Air 04/02 1821 168/60 04/02 1508 98.2 67 18 138/62 94 Room Air 04/02 1400 160/60
== END 2018-04-03 12:18 | disposition home health service (06) | DRG 690 ==
LOC: ERH 15:46 → ERHI 20:56 → 1NO 20:56 → CANRESERV 21:31 → ENRESERV 21:31 → EDBEDREQ 21:56 → EDBEDREQTM 21:56 → ENRESERV 22:59 → 1NO 04-02 00:02 → ENPENDDIS 04-03 11:49 → ENTRNSPT 04-03 11:58 → CMPTRNSPT 04-03 12:16 → 1NO 04-03 12:18
PROVIDERS: Student in an Organized Health Care Education/Training Program
DX: N39.0 Urinary tract infection, site not specified (principal); G45.8 Other transient cerebral ischemic attacks and related syndromes; I16.0 Hypertensive urgency; I10 Essential (primary) hypertension; E78.5 Hyperlipidemia, unspecified; E11.9 Type 2 diabetes mellitus without complications; R42 Dizziness and giddiness; R11.2 Nausea with vomiting, unspecified; Z79.84 Long term (current) use of oral hypoglycemic drugs; Z90.49 Acquired absence of other specified parts of digestive tract; B96.20 Unspecified Escherichia coli [E. coli] as the cause of diseases classified elsewhere
CPT/HCPCS: 1NP; 70551; ERO; 36415; 71046; 74177; 81001; 82436; 87086; 93005; 93010; 96361; 96374; 96375; 97112-GO; 97116-GO; 97161-GP; J0360; J0696; J1650; J2405